=== PATIENT | female | born 1965 ===

== ENCOUNTER 2017-05-10 06:30 | Day surgery (SDC) | payer OTHER ==
[2016-01-14 11:15] VITALS: BMI 24.3
[2017-05-10 07:13] VITALS: O2SAT 100
[2017-05-10] MEDS ORDERED: Propofol 10 mg/ml Inj (20 ML) ONE (07:45)
[2017-05-10] MEDS ORDERED: Lidocaine Hydrochloride 5 ML INJ ONE (07:46)
--- NOTE | 2017-05-10 07:48 | CP.SDSHP ---
Same Day Surgery H & P - History Proposed Procedure: COLONSCOPY Pre-Op Diagnosis: SEE NOTES - Previous Medical/Surgical History Cardiac: Hypertension Neuro: Backaches, Other Misc: Other Pain: 4.Moderate Pain - Allergies Allergies: Allergies No Known Allergies Allergy (Verified 05/10/17 06:46) - Physical Exam General Appearance: N Vital Signs: Vital Signs 05/10/17 06:35 Temperature 97.1 F L Pulse Rate 79 Respiratory 19 Rate Blood Pressure 105/66 O2 Sat by Pulse 100 Oximetry Mental Status: Alert & Oriented x3 Neuro: WNL Heart: Other Lungs: WNL GI: WNL - {Optional Preform as Required} Breast: WNL Abdomen: Other Rectal: Other Integument: WNL : WNL Ortho: Other ENT: WNL - Impression Pt. Evaluated Today:Candidate for Anesthesia & Procedure: Yes - Date & Time Time: 07:47 Short Stay Discharge - Short Stay Discharge Admitting Diagnosis/Reason for Visit: WEIGHT LOSS Disposition: HOME/ ROUTINE
[2017-05-10] MEDS ORDERED: Belladonna-Phenobarbital PO ONE (08:30)
[2017-05-10 08:34] VITALS: TEMP 97.5
[2017-05-10 09:47] VITALS: RESP 18
[2017-05-10 09:53] VITALS: BP 100/58; PULSE 60
== END 2017-05-10 09:50 | disposition home or self-care (01) ==
LOC: C.ENDO 06:30
PROVIDERS: ATTEND Specialist
DX: R63.4 Abnormal weight loss (principal); R10.84 Generalized abdominal pain; R19.4 Change in bowel habit; K64.4 Residual hemorrhoidal skin tags; K64.8 Other hemorrhoids; I10 Essential (primary) hypertension; K52.9 Noninfective gastroenteritis and colitis, unspecified
CPT/HCPCS: 45380; 84703; 88305; J2704

== ENCOUNTER 2017-05-12 07:15 | Day surgery (SDC) | payer OTHER ==
[2017-05-12 07:37] VITALS: BMI 23.3
[2017-05-12 07:56] VITALS: TEMP 97.7; O2SAT 100
[2017-05-12] MEDS ORDERED: Propofol 10 mg/ml Inj (20 ML) ONE (09:17)
--- NOTE | 2017-05-12 09:22 | CP.SDSHP ---
Same Day Surgery H & P - History Proposed Procedure: EGD Pre-Op Diagnosis: SEE NOTES - Previous Medical/Surgical History Cardiac: Hypertension Endocrine/Metabolic: Other Neuro: Backaches, Other Misc: Other Pain: 4.Moderate Pain - Allergies Allergies: Allergies No Known Allergies Allergy (Verified 05/10/17 06:46) - Physical Exam General Appearance: N Vital Signs: Vital Signs 05/12/17 07:50 Temperature 97.7 F Pulse Rate 71 Respiratory 19 Rate Blood Pressure 108/59 L O2 Sat by Pulse 100 Oximetry Neuro: Other Heart: WNL Lungs: WNL GI: Other - {Optional Preform as Required} Breast: WNL Abdomen: Other Rectal: Other Integument: WNL : WNL Ortho: Other ENT: WNL - Impression Pt. Evaluated Today:Candidate for Anesthesia & Procedure: Yes - Date & Time Time: :22 Short Stay Discharge - Short Stay Discharge Admitting Diagnosis/Reason for Visit: DYSPEPSIA Disposition: HOME/ ROUTINE
[2017-05-12] MEDS ORDERED: Pantoprazole 40 mg EC Tab PO STA (09:23)
[2017-05-12] MEDS ORDERED: Belladonna-Phenobarbital PO STA (09:25)
[2017-05-12 10:17] VITALS: RESP 17
[2017-05-12 10:36] VITALS: BP 111/62; PULSE 57
== END 2017-05-12 10:35 | disposition home or self-care (01) ==
LOC: C.ENDO 07:15
PROVIDERS: ATTEND Specialist
DX: K21.0 Gastro-esophageal reflux disease with esophagitis (principal); K44.9 Diaphragmatic hernia without obstruction or gangrene; I10 Essential (primary) hypertension; K29.70 Gastritis, unspecified, without bleeding
CPT/HCPCS: 43239; 84703; 88305; J2704

== ENCOUNTER 2017-12-13 17:15 | Emergency (ER) | payer MEDICAID, OTHER ==
[2017-12-13 17:15] VITALS: BMI 23.3
[2017-12-13 17:26] VITALS: BP 111/75; PULSE 77; RESP 19; TEMP 97.6; O2SAT 100
--- NOTE | 2017-12-14 12:51 | CARD ---
APPROVED REPORT Date of service: 12/13/2017 EKG Measurement Heart [id number] <Conclusion> Normal sinus rhythm Normal ECG
== END 2017-12-13 18:01 | disposition left against medical advice (07) ==
LOC: C.ER 17:15
DX: Z02.89 Encounter for other administrative examinations (principal); R07.9 Chest pain, unspecified
CPT/HCPCS: 93005; LWBS0

== ENCOUNTER 2018-01-30 20:06 | Emergency (ER) | payer OTHER ==
[2018-01-30 20:06] VITALS: BMI 23.3
[2018-01-30 20:29] VITALS: BP 120/80; PULSE 77; RESP 18; TEMP 97.9; O2SAT 100
[2018-01-30 21:46] LABS: BASO % 0.6 % (0.0-2.0); EOS # 0.6 K/uL (0.0-0.7); EOS % 11.5 % (0.0-4.0); LYMPH # 1.4 K/uL (1.0-4.3); LYMPH % 27.5 % (20.0-40.0); MEAN CELL VOLUME 93.6 fL (81.0-99.0); MEAN CORPUSCULAR HEMOGLOBIN 31.6 pg (27.0-31.0); MEAN CORPUSCULAR HGB CONC 33.8 g/dL (33.0-37.0); MEAN PLATELET VOLUME 9.5 fL (7.2-11.7); MONO # 0.5 K/uL (0.0-0.8); MONO % 10.4 % (0.0-10.0); NEUT # 2.6 K/uL (1.8-7.0); NRBC % 0.1 % (0.0-2.0); RBC 3.8 Mil/uL (3.80-5.20); RED CELL DISTRIBUTION WIDTH 15.3 % (11.5-14.5); WHITE BLOOD COUNT 5.2 K/uL (4.8-10.8)
[2018-01-30 21:53] LABS: INR 1.1; PROTHROMBIN TIME 12.5 SECONDS (9.7-12.2)
[2018-01-30 21:58] LABS: ALB/GLOB RATIO 1.8 (1.0-2.1); ALBUMIN 4.6 g/dL (3.5-5.0); ALT/SGPT 24 U/L (9-52); AST/SGOT 23 U/L (14-36); BLOOD UREA NITROGEN 23 mg/dL (7-17); CALCIUM 9.9 mg/dl (8.6-10.4); GFR NON-AFRICAN AMERICAN > 60
--- NOTE | 2018-01-30 22:08 | C.PDOC ---
History Of Present Illness 52 year old female presents to the ED complaining of red rash on inner thighs, lower legs, and ankles. Patient reports she had back surgery 4 days ago. She denies any SOB, voice change, difficulty swallowing or breathing. Denies fever, chills, n/v/d, or any other symptoms. Patient sts rash is mildly pruritic. Time Seen by Provider: 01/30/18 21:04 Chief Complaint (Nursing): Abnormal Skin Integrity History Per: Patient History/Exam Limitations: no limitations Onset/Duration Of Symptoms: Days Current Symptoms Are (Timing): Still Present Quality Of Symptoms: Itching Past Medical History Reviewed: Historical Data, Nursing Documentation, Vital Signs Vital Signs: Last Vital Signs Temp 97.9 F 01/30/18 20:25 Pulse 77 01/30/18 20:25 Resp 18 01/30/18 20:25 BP 120/80 01/30/18 20:25 Pulse Ox 100 01/30/18 20:25 - Medical History PMH: Anxiety, Back Problems, Colonic Polyps, Depression, Fibromyalgia Denies: Diabetes, Hepatitis, Chronic Kidney Disease, Sexually Transmitted Disease Surgical History: Endoscopy - [facility] Procedures ANESTH INJEC PERIPH NERV (05/14/13) ANESTH INJECT-SPIN CANAL (07/18/13) CONTRAST MYELOGRAM (05/08/14) INJECT STEROID (09/17/13) INJECTION INTO JOINT (09/17/13) LUMBOSAC SPINE X-RAY NEC (09/17/13) PERIPH NERVE INJECT NEC (05/14/13) SKEL XRAY-PELVIS/HIP NEC (09/17/13) SPINAL CANAL INJECT NEC (07/18/13) Family History: States: No Known Family Hx - Social History Hx Tobacco Use: No Hx Alcohol Use: No Hx Substance Use: No - Immunization History Hx Tetanus Toxoid Vaccination: No Hx Influenza Vaccination: Yes Hx Pneumococcal Vaccination: No Review Of Systems Except As Marked, All Systems Reviewed And Found Negative. Constitutional: Negative for: Fever, Chills Gastrointestinal: Negative for: Nausea, Vomiting, Diarrhea Skin: Positive for: Rash (red rash on inner thighs, ankles, and lower extremities) Physical Exam - Physical Exam Appears: Non-toxic Skin: Other (symmetrical petechiae on B/L inner thighs, lower legs, and medial malleolus area. Slightly pruritic. ) Head: Normacephalic Eye(s): bilateral: Normal Inspection Nose: Normal Oral Mucosa: Moist Tongue: No Swelling, No Lesions Lips: No Swelling Throat: Normal, No Drooling, Other (patent airway) Neck: Normal ROM Chest: Symmetrical Respiratory: Normal Breath Sounds Extremity: Normal ROM Neurological/Psych: Oriented x3, Normal Speech Gait: Steady ED Course And Treatment - Laboratory Results Result Diagrams: 01/30/18 21:42 01/30/18 21:42 O2 Sat by Pulse Oximetry: 100 (RA) Pulse Ox Interpretation: Normal Progress Note: Bloodwork was ddone and unremarkable. Patient is stable to be d/c home on Benadryl with PMD follow up. Disposition - Disposition Referrals: Saji Cruz MD [Primary Care Provider] - Disposition: HOME/ ROUTINE Disposition Time: 22:07 Condition: STABLE Additional Instructions: Follow up with PMD within 1-2 days. Return to ED if feel worse. Prescriptions: DiphenhydrAMINE [Benadryl] 25 mg PO .Q4-6 H #30 cap Instructions: Skin Rash Forms: [employer] (Czech) - Clinical Impression Clinical Impression: Skin rash - PA / [employer]ZZ[employer] / Resident Statement MD/DO has reviewed & agrees with the documentation as recorded. - Scribe Statement The provider has reviewed the documentation as recorded by the Scribe Astrid Cabrera All medical record entries made by the Scribe were at my direction and personally dictated by me. I have reviewed the chart and agree that the record accurately reflects my personal performance of the history, physical exam, medical decision making, and the department course for this patient. I have also personally directed, reviewed, and agree with the discharge instructions and di sposition.
== END 2018-01-30 22:15 | disposition home or self-care (01) ==
LOC: C.ER 20:06 → SUPCPDRO 20:06 → C.ER 22:15
DX: R21 Rash and other nonspecific skin eruption (principal)